=== PATIENT | male | born 1990 | race Hispanic/Latino ===

== ENCOUNTER 2020-09-23 03:49 | Emergency (ER) | payer OTHER, SELFPAY ==
--- OUTSIDE RECORDS SUMMARY | 2020-09-23 03:52 | XMS REPORT | Continuity of Care Document ---
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 Interpretation Comments WHITE BLOOD CELL (test code = 12.36 x10 3/uL 4.5-11.0 H WBC) RED BLOOD CELL (test code = 5.28 x10 6/uL 4.00-5.60 N RBC) HEMOGLOBIN (test code = HGB) 16.6 g/dL 12.5-16.9 N HEMATOCRIT (test code = HCT) 49.4 % 37.5-50.7 N MEAN CELL VOLUME (test code = 93.6 fL 81.0-99.0 N MCV) MEAN CELL HGB (test code = 31.4 pg 27.0-33.0 N MCH) MEAN CELL HGB CONCETRATION 33.6 g/dL 33.0-37.0 N (test code = MCHC) RED CELL DISTRIBUTION WIDTH CV 12.2 % 11.5-14.5 N (test code = RDW) RED CELL DISTRIBUTION WIDTH SD 42.4 fL 37.0-54.0 N (test code = RDW-SD) PLATELET COUNT (test code = 283 x10 3/uL 150-400 N PLT) MEAN PLATELET VOLUME (test 11.4 fL 7.0-9.0 H code = MPV) NEUTROPHIL % (test code = NT%) 63.0 % 56.0-77.0 N IMMATURE GRANULOCYTE % (test 0.3 % 0.0-2.0 N code = IG%) LYMPHOCYTE % (test code = LY%) 28.4 % 14.0-32.0 N MONOCYTE % (test code = MO%) 6.3 % 4.8-9.0 N EOSINOPHIL % (test code = EO%) 1.5 % 0.3-3.7 N BASOPHIL % (test code = BA%) 0.5 % 0.0-2.0 N NUCLEATED RBC % (test code = 0.0 % 0-0 N NRBC%) NEUTROPHIL # (test code = NT#) 7.79 x10 3/uL 2.0-7.6 H IMMATURE GRANULOCYTE # (test 0.04 x10 3/uL 0.00-0.03 H code = IG#) LYMPHOCYTE # (test code = LY#) 3.51 x10 3/uL 1.0-3.8 N MONOCYTE # (test code = MO#) 0.78 x10 3/uL 0.1-0.8 N EOSINOPHIL # (test code = EO#) 0.18 x10 3/uL 0.0-0.2 N BASOPHIL # (test code = BA#) 0.06 x10 3/uL 0.0-0.2 N NUCLEATED RBC # (test code = 0.00 x10 3/uL 0.0-0.1 N NRBC#) MANUAL DIFF REQUIRED (test NO code = MDIFF)
[2020-09-23 04:56] LABS: Basophils % 0.5 % (0-1.3); Hematocrit 44.9 % (39.6-49.0); Lymphocytes % 23.7 % (15.3-44.8); MPV 9.5 fL (7.6-11.3); RBC Red Blood Cell Count 4.91 M/uL (4.33-5.43)
[2020-09-23] MEDS ORDERED: MORPHINE 4 MG/ML SYR ONE (05:10)
[2020-09-23] MEDS ORDERED: NA CHLORIDE 0.9% 1,000 ML ONE (05:10)
[2020-09-23] MEDS ORDERED: ONDANSETRON 4 MG/2 ML VIAL ONE (05:10)
[2020-09-23] MEDS ORDERED: CEFTRIAXONE/SWI 1gm 1 GM/10 ML SYR ONE (05:10)
[2020-09-23] MEDS ORDERED: METRONIDAZOLE 500mg IVPB 500 MG/100 ML BAG IV ONE (05:11)
[2020-09-23 05:16] LABS: ALT/SGPT 48 U/L (12-78); AST/SGOT 22 U/L (15-37); Albumin 3.5 g/dL (3.4-5.0); Alkaline Phosphatase 69 U/L (45-117); BUN Blood Urea Nitrogen 10 mg/dL (7-18); Bicarbonate 28 mmol/L (21-32); Bilirubin Direct < 0.1 mg/dL (0-0.2); Bilirubin Total 0.3 mg/dL (0.2-1.0); Glucose Level 115 mg/dL (74-106); Lipase 58 U/L (73-393); Potassium 3.6 mmol/L (3.5-5.1); Protein, Total 7.7 g/dL (6.4-8.2); Sodium Level 141 mmol/L (136-145)
[2020-09-23 05:46] LABS: Urine Blood Trace-lysed (Negative); Urine Glucose Negative (Negative); Urine Protein Negative (Negative); Urine Specific Gravity 1.015 (1.005-1.030); Urine pH 5.5 (5.0-7.0)
--- NOTE | 2020-09-23 07:01 | ER ---
Nurse's Notes [facility] Name: Sven Giraldo Age: 29 yrs Sex: Male : 1990 Arrival Date: 09/23/2020 Time: 03:52 Bed 7 Private MD: Diagnosis: Diverticulitis of intestine, part unspecified, without perforation or abscess without bleeding Presentation: 09/23 04:16 Chief complaint: Patient states: lower quad. pain with nausea since Monday, hx of em diverticulitis, last flare up was 2 months ago. Coronavirus screen: Client denies travel out of the [place] in the last 14 days. Ebola Screen: Patient negative for fever greater than or equal to 101.5 degrees Fahrenheit, and additional compatible Ebola Virus Disease symptoms Patient denies exposure to infectious person. Patient denies travel to an Ebola-affected area in the 21 days before illness onset. No symptoms or risks identified at this time. Initial Sepsis Screen: Does the patient meet any 2 criteria? No. Patient's initial sepsis screen is negative. Does the patient have a suspected source of infection? No. Patient's initial sepsis screen is negative. Risk Assessment: Do you want to hurt yourself or someone else? Patient reports no desire to harm self or others. Onset of symptoms was September 23, 2020. 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 - Social history:: Smoking status: Patient denies any tobacco usage or history of. - Family history:: not pertinent. Screenin:31 Abuse screen: Denies threats or abuse. Nutritional screening: No deficits noted. bb Tuberculosis screening: No symptoms or risk factors identified. Fall Risk None identified. Assessment: 04:31 General: Appears in no apparent distress. uncomfortable, obese, Behavior is calm, bb cooperative. Pain: Complains of pain in abdomen Pain began 2-3 days ago. Is continuous. Neuro: Level of Consciousness is awake, alert, obeys commands, Oriented to person, place, time, situation. Cardiovascular: Capillary refill < 3 seconds Patient's skin is warm and dry. Respiratory: Respiratory effort is even, unlabored, Respiratory pattern is regular. GI: Abdomen is obese, Bowel sounds present X 4 quads. Abd is soft X 4 quads Abdomen is tender to palpation in suprapubic area. GI: Patient currently denies diarrhea, vomiting. Derm: Skin is pink, warm \T\ dry. Musculoskeletal: Circulation, motion, and sensation intact. 05:24 Reassessment: Patient is alert, oriented x 3, equal unlabored respirations, skin bb warm/dry/pink. awaiting CT scan Patient states feeling better. 06:24 Reassessment: Patient is alert, oriented x 3, equal unlabored respirations, skin bb warm/dry/pink. Patient states feeling better. 07:09 Reassessment: Patient is alert, oriented x 3, equal unlabored respirations, skin bb warm/dry/pink. pt verbalized understanding of and agrees to plan of care discharge instructions given pt ambulated with steady gait to exit. Vital Signs: 04:16 BP 178 / 105; Pulse 56; Resp 18; Temp 97.4; Pulse Ox 100% on R/A; Weight 136.08 kg; em Height 5 ft. 11 in. (180.34 cm); Pain 10/10; 05:15 BP 146 / 94; Pulse 61; Resp 16 S; Pulse Ox 99% ; bb 06:24 BP 149 / 77; Pulse 56; Resp 16 S; Pulse Ox 98% on R/A; bb 04:16 Body Mass Index 41.84 (136.08 kg, 180.34 cm) em ED Course: 03:52 Patient arrived in ED. es 04:17 Triage completed. em 04:17 Arm band placed on. em 04:20 Yee Ballesteros MD is Attending Physician. ma2 04:30 Griselda Cervantes, SWATHI is Primary Nurse. bb 04:31 Patient has correct armband on for positive identification. Placed in gown. Bed in low bb position. Call light in reach. Side rails up X 1. Pulse ox on. NIBP on. 04:31 Initial lab(s) drawn, by me, sent to lab. Inserted saline lock: 20 gauge in right bb antecubital area, using aseptic technique. Blood collected. 05:42 CT Abd/Pelvis - IV Contrast Only In Process Unspecified. EDMS 07:08 No provider procedures requiring assistance completed. IV discontinued, intact, bb bleeding controlled, No redness/swelling at site. Pressure dressing applied. Administered Medications: 05:00 Drug: NS 0.9% 1000 ml Route: IV; Rate: 1 bolus; Site: right antecubital; bb 06:24 Follow up: IV Status: Completed infusion; IV Intake: 1000ml bb 05:00 Drug: morphine 4 mg Route: IVP; Site: right antecubital; bb 05:23 Follow up: Response: No adverse reaction; Pain is decreased bb 05:02 Drug: Zofran (Ondansetron) 4 mg Route: IVP; Site: right antecubital; bb 05:23 Follow up: Response: No adverse reaction bb 05:06 Drug: Rocephin (cefTRIAXone) 1 grams Route: IV; Rate: calculated rate; Site: right bb antecubital; 05:07 Follow up: IV Status: Completed infusion; IV Intake: 10ml bb 05:10 Drug: Flagyl (metroNIDAZOLE) 500 mg Volume: 100 ml; Route: IVPB; Rate: 200 ml/hr; bb Infused Over: 30 mins; Site: right antecubital; 06:24 Follow up: IV Status: Completed infusion; IV Intake: 100ml bb Intake: 05:07 IV: 10ml; Total: 10ml. bb 06:24 IV: 1000ml; Total: 1010ml. bb 06:24 IV: 100ml; Total: 1110ml. bb Outcome: 07:01 Discharge ordered by . thom 07:09 Discharged to home ambulatory. bb 07:09 Condition: stable 07:09 Discharge instructions given to patient, Instructed on discharge instructions, follow up and referral plans. medication usage, Demonstrated understanding of instructions, follow-up care, medications, Prescriptions given X 3. 07:10 Patient left the ED. bb Signatures: Dispatcher [employer] Lorna Boo Edgar RN Griselda Barrett RN RN bb Alzahri, Mohammad, MD MD ma2
--- NOTE | 2020-09-23 07:02 | EDPHYS ---
Physician Documentation [facility] Name: Sven Giraldo Age: 29 yrs Sex: Male : 1990 Arrival Date: 09/23/2020 Time: 03:52 Bed 7 Private MD: ED Physician Yee Ballesteros HPI: 09/23 04:50 This 29 yrs old Male presents to ER via Ambulatory with complaints of ma2 Abdominal Pain. 04:50 Onset: The symptoms/episode began/occurred gradually, 1 day(s) ago. Associated signs ma2 and symptoms: Pertinent negatives: anorexia, constipation, dysuria. Severity of pain: At its worst the pain was moderate in the emergency department the pain is unchanged. The patient has experienced similar episodes in the past, had diverticulitis. 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 - Social history:: Smoking status: Patient denies any tobacco usage or history of. - Family history:: not pertinent. ROS: 04:50 Constitutional: Negative for fever, chills, and weight loss. ma2 04:50 All other systems are negative. Exam: 04:50 Constitutional: This is a well developed, well nourished patient who is awake, alert, ma2 and in no acute distress. ENT: Nares patent. No nasal discharge, no septal abnormalities noted. Tympanic membranes are normal and external auditory canals are clear. Oropharynx with no redness, swelling, or masses, exudates, or evidence of obstruction, uvula midline. Mucous membranes moist. Neck: Trachea midline, no thyromegaly or masses palpated, and no cervical lymphadenopathy. Supple, full range of motion without nuchal rigidity, or vertebral point tenderness. No Meningismus. Chest/axilla: Normal chest wall appearance and motion. Nontender with no deformity. No lesions are appreciated. Cardiovascular: Regular rate and rhythm with a normal S1 and S2. No gallops, murmurs, or rubs. Normal PMI, no JVD. No pulse deficits. Respiratory: Lungs have equal breath sounds bilaterally, clear to auscultation and percussion. No rales, rhonchi or wheezes noted. No increased work of breathing, no retractions or nasal flaring. Abdomen/GI: Soft, + loer midl;ine abd ttp, otherwise normal bowel sounds. No distension or tympany. No guarding or rebound. No evidence in other locations Back: No spinal tenderness. No costovertebral tenderness. Full range of motion. Vital Signs: 04:16 BP 178 / 105; Pulse 56; Resp 18; Temp 97.4; Pulse Ox 100% on R/A; Weight 136.08 kg; em Height 5 ft. 11 in. (180.34 cm); Pain 10/10; 05:15 BP 146 / 94; Pulse 61; Resp 16 S; Pulse Ox 99% ; bb 06:24 BP 149 / 77; Pulse 56; Resp 16 S; Pulse Ox 98% on R/A; bb 04:16 Body Mass Index 41.84 (136.08 kg, 180.34 cm) em MDM: 04:20 Patient medically screened. [facility] 04:50 Differential diagnosis: diverticulitis, gastritis, gastroesophageal reflux disease, ma2 pancreatitis. 07:00 Data reviewed: vital signs, nurses notes. Counseling: I had a detailed discussion with ma2 the patient and/or guardian regarding: the historical points, exam findings, and any diagnostic results supporting the discharge/admit diagnosis, the presence of at least one elevated blood pressure reading (>120/80) during this emergency department visit, the need for outpatient follow up. Response to treatment: the patient's symptoms have markedly improved after treatment. 09/23 04:12 Order name: Basic Metabolic Panel; Complete Time: 45 [facility] 09/23 04:12 Order name: CBC with Diff; Complete Time: wa2 09/23 04:12 Order name: Hepatic Function; Complete Time: :45 [facility] 09/23 04:12 Order name: Lipase; Complete Time: 05:45 [facility] 09/23 04:38 Order name: CT Abd/Pelvis - IV Contrast Only [facility] 09/23 05:46 Order name: Urine Dipstick-Ancillary; Complete Time: 06:13 EDMS 09/23 04:12 Order name: IV Saline Lock; Complete Time: 04: wa2 09/23 04:12 Order name: Labs collected and sent; Complete Time: 04:31 ma2 09/23 04:12 Order name: Urine Dipstick-Ancillary (obtain specimen); Complete Time: 05:46 ma2 Administered Medications: 05:00 Drug: NS 0.9% 1000 ml Route: IV; Rate: 1 bolus; Site: right antecubital; bb 06:24 Follow up: IV Status: Completed infusion; IV Intake: 1000ml bb 05:00 Drug: morphine 4 mg Route: IVP; Site: right antecubital; bb 05:23 Follow up: Response: No adverse reaction; Pain is decreased bb 05:02 Drug: Zofran (Ondansetron) 4 mg Route: IVP; Site: right antecubital; bb 05:23 Follow up: Response: No adverse reaction bb 05:06 Drug: Rocephin (cefTRIAXone) 1 grams Route: IV; Rate: calculated rate; Site: right bb antecubital; 05:07 Follow up: IV Status: Completed infusion; IV Intake: 10ml bb 05:10 Drug: Flagyl (metroNIDAZOLE) 500 mg Volume: 100 ml; Route: IVPB; Rate: 200 ml/hr; bb Infused Over: 30 mins; Site: right antecubital; 06:24 Follow up: IV Status: Completed infusion; IV Intake: 100ml bb Disposition Summary: 09/23/20 07:01 Discharge Ordered Location: Home ma2 Condition: Stable ma2 Diagnosis - Diverticulitis of intestine, part unspecified, without perforation or abscess ma2 without bleeding Followup: ma2 - With: Private Physician - When: Tomorrow - Reason: Wound Recheck, If symptoms return Discharge Instructions: - Discharge Summary Sheet ma2 - Diverticulitis, [id number] ma2 Forms: - Work release form [id number] - Medication Reconciliation Form ma2 - Thank You Letter ma2 - Antibiotic Education ma2 - Prescription Opioid Use ma2 Prescriptions: - Flagyl 500 mg Oral Tablet - take 4 tablets by ORAL route one time for 1 day; 4 tablet; Refills: 0, Product ma2 Selection Permitted - Cipro 500 mg Oral Tablet - take 1 tablet by ORAL route every 12 hours for 7 days; 14 tablet; Refills: 0, ma2 Product Selection Permitted - Diclofenac Sodium 75 mg Oral Tablet Sustained Release - take 1 tablet by ORAL route 2 times per day; 30 tablet; Refills: 0, Product ma2 Selection Permitted Signatures: Dispatcher [employer] Kamaljit Mcrae RN RN em Griselda Cervantes RN RN bb Yee Ballesteros MD MD ma2
[2020-09-23 07:15] VITALS: TEMP 97.4
[2020-09-23 07:18] VITALS: BP 149/77; O2SAT 98
--- NOTE | 2020-09-23 13:36 | RAD REPORT ---
EXAM DESCRIPTION: CT - Abdomen Pelvis W Contrast - 09/23/2020 6:30 am CLINICAL HISTORY: The patient is 29 years old and is Male; ABD PAIN TECHNIQUE: Axial computed tomography images of the abdomen and pelvis with intravenous contrast. S agittal and coronal reformatted images were created and reviewed. This CT exam was performed using one or more of the following dose reduction techniques: automated exposure control, adjustment of t he mA and/or kV according to patient size, and/or use of iterative reconstruction technique. COMPARISON: No relevant prior studies available. FINDINGS: Lung bases: Unremarkable. No mass. No consolidation. ABDOMEN: Liver: Unremarkable. No mass. Gallbladder and bile ducts: Unremarkable. No calcified stones. No ductal dilation. Pancreas: Unremarkable. No mass. No ductal dilation. Spleen: Unremarkable. No splenomegaly. Adrenals: Unremarkable. No mass. Kidneys and ureters: Unremarkable. No solid mass. No hydronephrosis. Stomach and bowel: Sigmoid diverticula with adjacent fat stranding suggestive of diverticulitis. No evidence of abscess or perforation. No obstruction. PELVIS: Appendix: No findings to suggest acute appendicitis. Bladder: Unremarkable. No mass. Reproductive: Unremarkable as visualized. ABDOMEN and PELVIS: Intraperitoneal space: Unremarkable. No free air. No significant fluid collection. Bones/joints: No acute fracture. No dislocation. Soft tissues: Unremarkable. Vasculature: Unremarkable. No abdominal aortic aneurysm. Lymph nodes: Unremarkable. No enlarged lymph nodes. IMPRESSION: Sigmoid diverticula with adjacent fat stranding suggestive of diverticulitis. No evidenc e of abscess or perforation. Electronically signed by: Jack Hatfield MD 09/23/2020 6:00 AM CDT Due to temporary technical issues with the PACS/Fluency reporting system, reports are being signed by the in house radiologists without review as a courtesy to insure prompt reporting. The interpreting radiologist is fully responsible for the content of the report.
== END 2020-09-23 07:10 | disposition home or self-care (01) ==
LOC: ER 03:49
DX: K57.32 Diverticulitis of large intestine without perforation or abscess without bleeding (principal)
CPT/HCPCS: 36415; 74177; 80048; 80076; 81003; 83690; 85025; 96365; 96375; 99284; J0696; J2405; J7030; Q9967

== ENCOUNTER 2020-10-03 09:12 | Emergency (ER) | payer SELFPAY ==
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
[2020-10-03 09:48] LABS: Absolute Lymphocytes (CBC) 3.8 K/uL (0.7-4.9); Lymphocytes % 39.5 % (15.3-44.8); MPV 8.9 fL (7.6-11.3); RBC Red Blood Cell Count 5.31 M/uL (4.33-5.43)
--- NOTE | 2020-10-03 09:50 | RAD REPORT ---
EXAM DESCRIPTION: RAD - Chest Single View - 10/03/2020 9:43 am CLINICAL HISTORY: CHEST PAIN COMPARISON: August 2011 TECHNIQUE: AP portable chest image was obtained 10/03/2020 9:43 am . FINDINGS: Portable technique and large body habitus limit the examination. No focal consolidation or mass lesion identified. Interstitial pattern is prominent. The patient's baseline pattern and shallo w inspiration could mask early edema or infiltrate. Heart and vasculature are normal. No measurable pleural effusion and no pneumothorax. No acute bony abnormality seen. No acute aortic findings suspected. IMPRESSION: No focal mass or consolidation. Prominent interstitial opacification as a baseline could mask early edema or infiltrate.
[2020-10-03 09:56] LABS: Protime INR 1.05
[2020-10-03 10:08] LABS: ALT/SGPT 51 U/L (12-78); AST/SGOT 25 U/L (15-37); Albumin 3.9 g/dL (3.4-5.0); Alkaline Phosphatase 71 U/L (45-117); BUN Blood Urea Nitrogen 8 mg/dL (7-18); Bicarbonate 27 mmol/L (21-32); Bilirubin Direct 0.1 mg/dL (0-0.2); Bilirubin Total 0.3 mg/dL (0.2-1.0); Glucose Level 126 mg/dL (74-106); Magnesium 2.2 mg/dL (1.8-2.4); NT PRO-BNP 13 pg/mL (<125); Potassium 3.9 mmol/L (3.5-5.1); Protein, Total 8.2 g/dL (6.4-8.2); Sodium Level 137 mmol/L (136-145); Troponin (Emerg Dept Use Only) < 0.02 ng/mL (0.0-0.045)
[2020-10-03] MEDS ORDERED: ONDANSETRON 4 MG/2 ML VIAL ONE (10:30)
[2020-10-03] MEDS ORDERED: KETOROLAC 30 MG/ML INJ ONE (10:46)
--- NOTE | 2020-10-03 10:49 | ER ---
Nurse's Notes [facility] Name: Sven Giraldo Age: 29 yrs Sex: Male : 1990 Arrival Date: 10/03/2020 Time: 09:14 Bed 17 Private MD: Diagnosis: Chest pain, unspecified;Nausea Presentation: 10/03 09:20 Chief complaint: Patient states: Started having chest pain on the left side with nausea rb3 at 0500 this morning. Pain does not radiate. 09:20 Coronavirus screen: At this time, the client does not indicate any symptoms associated rb3 with coronavirus-19. Ebola Screen: Patient denies travel to an Ebola-affected area in the 21 days before illness onset. Initial Sepsis Screen: Does the patient meet any 2 criteria? No. Patient's initial sepsis screen is negative. Does the patient have a suspected source of infection? No. Patient's initial sepsis screen is negative. Risk Assessment: Do you want to hurt yourself or someone else? Patient reports no desire to harm self or others. Onset of symptoms was October 03, 2020 at 05:00. 09:20 Method Of Arrival: Ambulatory rb3 09:20 Acuity: ESTRELLA 3 rb3 Triage Assessment: 09:20 General: Appears in no apparent distress. comfortable, Behavior is calm, cooperative, rb3 Denies fever. Pain: Complains of pain in anterior aspect of left upper chest Pain does not radiate. Pain currently is 8 out of 10 on a pain scale. Pain began 0500 this morning. Neuro: Level of Consciousness is awake, alert, obeys commands, Oriented to person, place, time, situation. Cardiovascular: Patient's skin is warm and dry. Respiratory: Airway is patent Respiratory effort is even, unlabored, Respiratory pattern is regular, symmetrical. GI: Reports nausea. : No signs and/or symptoms were reported regarding the genitourinary system. Musculoskeletal: Range of motion: intact in all extremities. 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 - Social history:: Smoking status: Patient/guardian denies using. Screenin:20 Abuse screen: Denies threats or abuse. Nutritional screening: No deficits noted. rb3 Tuberculosis screening: No symptoms or risk factors identified. Fall Risk None identified. Assessment: 09:20 General: See triage assessment. rb3 10:13 Reassessment: Patient appears in no apparent distress at this time. No changes from rb3 previously documented assessment. Vital Signs: 09:20 BP 161 / 90; Pulse 62; Resp 19; Temp 97.9; Pulse Ox 100% ; Weight 136.08 kg; Height 5 rb3 ft. 11 in. (180.34 cm); Pain 8/10; 10:13 BP 134 / 87; Pulse 75; Resp 20; Pulse Ox 100% ; rb3 09:20 Body Mass Index 41.84 (136.08 kg, 180.34 cm) rb3 ED Course: 09:14 Patient arrived in ED. as 09:20 Arm band placed on right wrist. rb3 09:20 Patient has correct armband on for positive identification. Bed in low position. Call rb3 light in reach. Side rails up X 1. color television console monitor on. Pulse ox on. NIBP on. Warm blanket given. 09:20 Patient maintains SpO2 saturation greater than 95% on room air. rb3 09:21 Shyla Ruvalcaba, RN is Primary Nurse. rb3 09:21 Michael Alejandre MD is Attending Physician. tw4 09:32 Triage completed. rb3 09:42 Inserted saline lock: 20 gauge in right antecubital area, using aseptic technique. rb3 Blood collected. 09:43 XRAY Chest (1 view) In Process Unspecified. EDMS 11:04 No provider procedures requiring assistance completed. IV discontinued, intact, rb3 bleeding controlled, No redness/swelling at site. Pressure dressing applied. Administered Medications: 10:13 Drug: Zofran (Ondansetron) 4 mg Route: IVP; Site: right antecubital; rb3 10:40 Follow up: Response: No adverse reaction; Nausea is decreased rb3 10:27 Drug: Ketorolac 30 mg Route: IVP; Site: right antecubital; rb3 10:40 Follow up: Response: No adverse reaction; Pain is decreased rb3 Outcome: 10:49 Discharge ordered by . tw4 11:04 Discharged to home ambulatory. rb3 11:04 Condition: stable 11:04 Discharge instructions given to patient, Instructed on discharge instructions, follow up and referral plans. medication usage, Demonstrated understanding of instructions, follow-up care, medications, Prescriptions given X 2. 11:05 Patient left the ED. rb3 Signatures: Dispatcher [employer] EDNataliya Palma Terrence, MD MD tw4 Shyla Ruvalcaba, RN RN rb3
--- NOTE | 2020-10-03 10:49 | EDPHYS ---
Physician Documentation [facility] Name: Sven Giraldo Age: 29 yrs Sex: Male : 1990 Arrival Date: 10/03/2020 Time: 09:14 Bed 17 Private MD: ED Physician Michael Alejandre HPI: 10/03 09:34 This 29 yrs old Male presents to ER via Ambulatory with complaints of Chest tw4 Pain. 09:34 The patient or guardian reports chest pain that is located primarily in the anterior tw4 chest wall, left. The pain does not radiate. Associated signs and symptoms: Pertinent positives: near-syncope, Pertinent negatives: abdominal pain, cough, diaphoresis, dizziness, headache, lower extremity pain, lower extremity swelling, lightheadedness. The chest pain is described as dull. Duration: The patient or guardian reports a single episode. Modifying factors: The symptoms are alleviated by nothing. the symptoms are aggravated by nothing. Severity of pain: At its worst the pain was moderate in the emergency department the pain is unchanged. The patient has not experienced similar symptoms in the past. 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 - Social history:: Smoking status: Patient/guardian denies using. ROS: 09:34 Constitutional: Negative for fever, chills, and weight loss, Neck: Negative for injury, tw4 pain, and swelling, Cardiovascular: Negative for chest pain, palpitations, and edema, Respiratory: Negative for shortness of breath, cough, wheezing, and pleuritic chest pain, Abdomen/GI: Negative for abdominal pain, nausea, vomiting, diarrhea, and constipation, Back: Negative for injury and pain, MS/Extremity: Negative for injury and deformity, Skin: Negative for injury, rash, and discoloration, Neuro: Negative for headache, weakness, numbness, tingling, and seizure. Exam: 09:36 Constitutional: This is a well developed, well nourished patient who is awake, alert, tw4 and in no acute distress. ENT: Nares patent. No nasal discharge, no septal abnormalities noted. Tympanic membranes are normal and external auditory canals are clear. Oropharynx with no redness, swelling, or masses, exudates, or evidence of obstruction, uvula midline. Mucous membranes moist. Neck: Trachea midline, no thyromegaly or masses palpated, and no cervical lymphadenopathy. Supple, full range of motion without nuchal rigidity, or vertebral point tenderness. No Meningismus. Chest/axilla: Normal chest wall appearance and motion. Nontender with no deformity. No lesions are appreciated. Cardiovascular: Regular rate and rhythm with a normal S1 and S2. No gallops, murmurs, or rubs. Normal PMI, no JVD. No pulse deficits. Respiratory: Lungs have equal breath sounds bilaterally, clear to auscultation and percussion. No rales, rhonchi or wheezes noted. No increased work of breathing, no retractions or nasal flaring. Abdomen/GI: Soft, non-tender, with normal bowel sounds. No distension or tympany. No guarding or rebound. No evidence of tenderness throughout. Skin: Warm, dry with normal turgor. Normal color with no rashes, no lesions, and no evidence of cellulitis. MS/ Extremity: Pulses equal, no cyanosis. Neurovascular intact. Full, normal range of motion. Neuro: Awake and alert, GCS 15, oriented to person, place, time, and situation. Cranial nerves II-XII grossly intact. Motor strength 5/5 in all extremities. Sensory grossly intact. Cerebellar exam normal. Normal gait. Vital Signs: 09:20 BP 161 / 90; Pulse 62; Resp 19; Temp 97.9; Pulse Ox 100% ; Weight 136.08 kg; Height 5 rb3 ft. 11 in. (180.34 cm); Pain 8/10; 10:13 BP 134 / 87; Pulse 75; Resp 20; Pulse Ox 100% ; rb3 09:20 Body Mass Index 41.84 (136.08 kg, 180.34 cm) rb3 MDM: 09:21 Patient medically screened. 10/03 09:22 Order name: Basic Metabolic Panel 10/03 09:22 Order name: CBC with Diff; Complete Time: 10:23 10/03 10:24 Interpretation: Normal except. 10/03 09:22 Order name: LFT's; Complete Time: 10:23 10/03 10:24 Interpretation: Normal except: GLOB 4.3; A/G 0.9. 10/03 09:22 Order name: Magnesium; Complete Time: 10:23 tw10/03 10:24 Interpretation: Within normal limits: MG 2.2. 10/03 09:22 Order name: NT PRO-BNP; Complete Time: 10:23 10/03 10:24 Interpretation: NT PRO-BNP 13. 10/03 09:22 Order name: PT-INR; Complete Time: 10:23 10/03 10:24 Interpretation: Within normal limits: PT 12.1; INR <p>1.05</p>. 10/03 09:22 Order name: Troponin (emerg Dept Use Only); Complete Time: 10:23 10/03 10:24 Interpretation: Within normal limits: TROPED < 0.02. 10/03 09:22 Order name: XRAY Chest (1 view); Complete Time: 10:23 10/03 10:25 Interpretation: No acute disease. 10/03 09:22 Order name: EKG; Complete Time: 09:23 10/03 09:22 Order name: Cardiac monitoring; Complete Time: 09:35 10/03 09:22 Order name: EKG - Nurse/Tech; Complete Time: 09:35 10/03 09:23 Order name: Basic Metabolic Panel; Complete Time: 10:23 EDMS 10/03 10:24 Interpretation: Normal except: GLUC 126. 10/03 09:22 Order name: IV Saline Lock; Complete Time: 09:44 10/03 09:22 Order name: Labs collected and sent; Complete Time: 09:44 10/03 09:22 Order name: O2 Per Protocol; Complete Time: 09:28 10/03 09:22 Order name: O2 Sat Monitoring; Complete Time: 09:28 tw4 EC:37 Rhythm is regular. QRS [place] is Normal. OK interval is normal. QRS interval is normal. tw4 QT interval is normal. No Q waves. T waves are Normal. No ST changes noted. Clinical impression: Abnormal EKG without significant change. Interpreted by me. Reviewed by me. Administered Medications: 10:13 Drug: Zofran (Ondansetron) 4 mg Route: IVP; Site: right antecubital; rb3 10:40 Follow up: Response: No adverse reaction; Nausea is decreased rb3 10:27 Drug: Ketorolac 30 mg Route: IVP; Site: right antecubital; rb3 10:40 Follow up: Response: No adverse reaction; Pain is decreased rb3 Disposition Summary: 10/03/20 10:49 Discharge Ordered Location: Home tw4 Problem: new tw4 Symptoms: have improved tw4 Condition: Stable tw4 Diagnosis - Chest pain, unspecified tw4 - Nausea tw4 Followup: tw4 - With: Private Physician - When: Upon discharge from the Emergency Department - Reason: Recheck today's complaints, Continuance of care, Re-evaluation by your physician Discharge Instructions: - Discharge Summary Sheet tw4 - Nonspecific Chest Pain, Adult tw4 - Pain Without a Known Cause tw4 - Exercise Stress Test tw4 Forms: - Medication Reconciliation Form tw4 - Thank You Letter tw4 - Antibiotic Education tw4 - Prescription Opioid Use tw4 Prescriptions: - Ibuprofen 600 mg Oral Tablet - take 1 tablet by ORAL route every 6 hours As needed take with food; 30 tablet; tw4 Refills: 0, Product Selection Permitted - Zofran 4 mg Oral Tablet - take 1 tablet by ORAL route every 12 hours As needed; 6 tablet; Refills: 0, tw4 Product Selection Permitted Signatures: Dispatcher [employer] Michael Encinas MD MD tw4 Shyla Ruvalcaba, RN RN rb3
[2020-10-03 11:11] VITALS: TEMP 97.9; O2SAT 100
[2020-10-03 11:13] VITALS: BP 134/87
--- NOTE | 2020-10-05 16:11 | EKG ---
Test Date: 2020-10-03 Test Time: 09:31:05 Technical Training Manager: [id number] MEASUREMENT RESULTS: Intervals: Rate: 74 [place]: 164 QRSD: 98 QT: 428 QTc: 475 [place]: P: 27 [place]: 164 QRS: 20 T: 34 INTERPRETIVE STATEMENTS: Normal sinus rhythm with sinus arrhythmia Prolonged QT Abnormal ECG Compared to ECG 09/04/2011 14:29:46 Prolonged QT interval now present Left ventricular hypertrophy no longer present ST (T wave) deviation no longer present Electronically Signed On 10-05-20 16:05:22 CDT by Nathan Varela
== END 2020-10-03 11:05 | disposition home or self-care (01) ==
LOC: ER 09:12
DX: R07.89 Other chest pain (principal); R11.0 Nausea; I10 Essential (primary) hypertension
CPT/HCPCS: 36415; 71045; 80048; 80076; 83735; 83880; 84484; 85025; 85610; 93005; 96374; 96375; 99285; J2405